=== PATIENT | male | born 1950 | race Native Hawaiian/Other Pacific Islander ===

== ENCOUNTER 2016-12-13 17:23 | Outpatient (CLI) | payer OTHER | END 2016-12-13 20:16 | disposition home or self-care (01) | LOC: RAD 17:23 | DX: J40 Bronchitis, not specified as acute or chronic (principal) ==

== ENCOUNTER 2020-12-21 03:40 | Emergency (ER) | payer OTHER ==
[~2020-12-21] VITALS: Ht 177.8 cm; Wt 108.9 kg
[2020-12-21 04:50] VITALS: BP 169/73; TEMP 98.3
== END 2020-12-21 04:50 | disposition home or self-care (01) ==
LOC: ED 03:40
DX: K04.7 Periapical abscess without sinus (principal)
CPT/HCPCS: 99282; 99283